=== PATIENT | female | born 1940 | race Caucasian/White ===

== ENCOUNTER 2021-09-23 11:39 | Inpatient (IN) | payer MEDICARE, OTHER ==
[~2021-09-23] VITALS: Ht 152.4 cm; Wt 108.9 kg
[~2021-09-23 11:39] MED LIST: ASPIR 8181 MG PO; BENTYL10 MG PO; COUMADIN 1MG TAB1 MG PO; COUMADIN5 MG PO; LIPITOR TAB 1010 MG PO; NEURONTIN 100100 MG PO; NORVASC 5 MG TAB5 MG PO
[2021-09-23] MEDS ORDERED: WARFARIN SODIUM2 MG PO (17:15)
[2021-09-23] MEDS ORDERED: VITAMIN C500 MG PO (17:16)
[2021-09-23] MEDS ORDERED: HYDROCODON-ACE1 EAC4 PO (17:17)
[2021-09-23] MEDS ORDERED: LOPRESSOR 25 MG25 MG PO (18:18)
[2021-09-23 18:54] LABS: HEMOGLOBIN 13.7 gm/dl (12.3-15.3); RED BLOOD COUNT 4.47 M/UL (4.00-5.10); WHITE BLOOD COUNT 10.2 K/UL (4.5-11.0)
[2021-09-24] MEDS ORDERED: METOPROLOL SUCC25 MG PO (08:06)
[2021-09-24] MEDS ORDERED: ALPRAZOLAM0.25 MG PO (10:01)
[2021-09-24] MEDS ORDERED: TIZANIDINE HCL4 MG PO (10:01)
[2021-09-24] MEDS ORDERED: LEVOTHYROXINE25 MCG PO (10:01)
[2021-09-24] MEDS ORDERED: VITAMIN D21250 MCG PO ×2 (10:02)
[2021-09-26 04:55] LABS: HEMOGLOBIN 13.2 gm/dl (12.3-15.3); RED BLOOD COUNT 4.29 M/UL (4.00-5.10); WHITE BLOOD COUNT 10.8 K/UL (4.5-11.0)
[2021-09-26 05:16] LABS: BUN/CREATININE RATIO 19 (0-10)
[2021-09-27 17:31] LABS: HEMOGLOBIN 13.8 gm/dl (12.3-15.3); RED BLOOD COUNT 4.42 M/UL (4.00-5.10); WHITE BLOOD COUNT 16.4 K/UL (4.5-11.0)
[2021-09-27 17:54] LABS: BUN/CREATININE RATIO 17 (0-10)
--- NOTE | 2021-09-27 18:17 | NUR ---
PT BACK FROM SURGERY AT APPROX 1730, LEFT FINGERS CAP REFILL LESS THAN 3 SECONDS, WARM AND PINK
--- NOTE | 2021-09-28 01:00 | NUR ---
POLAR ICE IN PLACE
[2021-09-28 08:24] LABS: HEMOGLOBIN 12.5 gm/dl (12.3-15.3); RED BLOOD COUNT 4.21 M/UL (4.00-5.10); WHITE BLOOD COUNT 19.1 K/UL (4.5-11.0)
[2021-09-29 07:18] LABS: HEMOGLOBIN 11.6 gm/dl (12.3-15.3); RED BLOOD COUNT 3.86 M/UL (4.00-5.10); WHITE BLOOD COUNT 15.4 K/UL (4.5-11.0)
[2021-09-30 07:12] LABS: RED BLOOD COUNT 3.67 M/UL (4.00-5.10)
[2021-09-30 07:15] LABS: WHITE BLOOD COUNT 11.4 K/UL (4.5-11.0)
[2021-09-30 07:33] LABS: BUN/CREATININE RATIO 21 (0-10)
[2021-10-01 06:39] LABS: HEMOGLOBIN 11.6 gm/dl (12.3-15.3); RED BLOOD COUNT 3.8 M/UL (4.00-5.10)
[2021-10-01 06:58] LABS: BUN/CREATININE RATIO 17 (0-10)
[2021-10-01] MEDS ORDERED: TYLENOL325 MG PO (09:44)
[2021-10-02 05:32] LABS: HEMOGLOBIN 11.4 gm/dl (12.3-15.3); RED BLOOD COUNT 3.77 M/UL (4.00-5.10); WHITE BLOOD COUNT 10.4 K/UL (4.5-11.0)
[2021-10-02 05:47] LABS: BUN/CREATININE RATIO 15 (0-10)
[2021-10-03 07:41] LABS: HEMOGLOBIN 11.9 gm/dl (12.3-15.3); RED BLOOD COUNT 4.04 M/UL (4.00-5.10); WHITE BLOOD COUNT 11.3 K/UL (4.5-11.0)
[2021-10-03 08:08] LABS: BUN/CREATININE RATIO 14 (0-10)
== END 2021-10-03 20:20 | DRG 483 ==
LOC: M/S 15:55
PROVIDERS: Internal Medicine; Orthopaedic Surgery; Physician Assistant; Physician Assistant Medical; ADMIT Internal Medicine Infectious Disease
PROC: 0LS40ZZ Reposition Left Upper Arm Tendon, Open Approach (ICD-10-PCS; 2021-09-27)
PROC: 0RRK0JZ Replacement of Left Shoulder Joint with Synthetic Substitute, Open Approach (ICD-10-PCS; principal; 2021-09-27 16:00)
DX: S42.202A Unspecified fracture of upper end of left humerus, initial encounter for closed fracture (principal); J96.01 Acute respiratory failure with hypoxia; J98.11 Atelectasis; Z68.42 Body mass index [BMI] 45.0-49.9, adult; Z20.822 Contact with and (suspected) exposure to COVID-19; W18.30XA Fall on same level, unspecified, initial encounter; I25.10 Atherosclerotic heart disease of native coronary artery without angina pectoris; E78.5 Hyperlipidemia, unspecified; M81.0 Age-related osteoporosis without current pathological fracture; I10 Essential (primary) hypertension; E66.01 Morbid (severe) obesity due to excess calories; I48.91 Unspecified atrial fibrillation; Z79.01 Long term (current) use of anticoagulants; Z79.82 Long term (current) use of aspirin; Y92.009 Unspecified place in unspecified non-institutional (private) residence as the place of occurrence of the external cause; Z95.5 Presence of coronary angioplasty implant and graft; Z90.710 Acquired absence of both cervix and uterus; Z86.73 Personal history of transient ischemic attack (TIA), and cerebral infarction without residual deficits
CPT/HCPCS: 36415; 71045; 73020; 80048; 80053; 81001; 83735; 84443; 85025; 85027; 85610; 85730; 93005; 97110; 97116; 97161; 97164; 97166; 97168; 97530-GP-CQ; C1713; C1776; J0171; J0690; J1100; J1650; J2001; J2270; J2405; J2704; J2795; J3010; J3370; J7120; U0002